=== PATIENT | male | born 1980 | race Caucasian/White ===

== ENCOUNTER 2016-10-17 02:47 | Emergency (ER) | payer OTHER | END 2016-10-17 04:00 | disposition left against medical advice (07) | LOC: CED 02:47 | DX: Z53.21 Procedure and treatment not carried out due to patient leaving prior to being seen by health care provider (principal) ==

== ENCOUNTER 2016-11-09 16:33 | Emergency (ER) | payer OTHER | END 2016-11-09 17:56 | disposition left against medical advice (07) | LOC: CED 16:33 | DX: T40.1X1A Poisoning by heroin, accidental (unintentional), initial encounter (principal) | CPT/HCPCS: 99282; 99283 ==

== ENCOUNTER 2016-12-02 17:44 | Emergency (ER) | payer OTHER | END 2016-12-02 18:30 | disposition left against medical advice (07) | LOC: CED 17:44 | DX: Z53.21 Procedure and treatment not carried out due to patient leaving prior to being seen by health care provider (principal) ==